=== PATIENT | female | born 1975 | race Two or more races ===

== ENCOUNTER 2019-01-04 03:46 | Emergency (ER) | payer SELFPAY ==
[~2019-01-04] VITALS: Ht 147.3 cm; Wt 60.8 kg
[2019-01-04 08:11] VITALS: BP 123/83
[2019-01-04] MEDS ORDERED: METHOCARBAMOL 500 MG TAB PO ONE (08:15)
[2019-01-04] MEDS ORDERED: KETOROLAC TROMETH 60MG/2ML VIAL IM ONE (08:15)
== END 2019-01-04 08:53 | disposition home or self-care (01) ==
LOC: EDBD 03:46 → ER 03:50
DX: M54.9 Dorsalgia, unspecified (principal); Z90.710 Acquired absence of both cervix and uterus; V43.52XA Car driver injured in collision with other type car in traffic accident, initial encounter; Y93.89 Activity, other specified; Y99.8 Other external cause status; Y92.410 Unspecified street and highway as the place of occurrence of the external cause
CPT/HCPCS: 72220; 73030; 96372; 99283; J1885